=== PATIENT | male | born 2005 | race African-American/Black ===

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

== ENCOUNTER 2024-12-05 08:28 | Inpatient (IN) | payer OTHER, SELFPAY ==
--- OUTSIDE RECORDS SUMMARY | 2024-11-29 14:31 | XMS_ITS | Encounter Summary ---
Author Organization [facility] Address [address] [place] [address] Care Team Providers Care Load Out Worker Name Role Phone Thierry Stern MD Primary Care Provider Encounter Details Date Type Department Care Team (Latest Contact Info) Description 11/29/2024 2:31 PM EDT - 11/29/2024 11:59 PM EDT [facility] [address] [facility] [place] [address] Discharge Disposition: Home or Self Care Social History Tobacco Use Types Packs/Day Years Used Date Smoking Tobacco: Never Smokeless Tobacco: Never Alcohol Use Standard Drinks/Week Comments Not Asked 0 (1 standard drink = 0.6 oz pur e alcohol) Sex and Gender Information Value Date Recorded Sex Assigned at Not on file Legal Sex Male 6:41 AM EST Gender Identity Not on file Sexual Orientation Not on file documented as of this encounter Medications at Time of Discharge naproxen (NAPROSYN) 500 mg tabletIndications :pain Take 1 tablet (500 mg total) by mouth 2 (two) times a day with meals for 10 days. 20 tablet 11/29/2024 12/09/2024 documented as of this encounter Discharge Disposition Disposition Code Departure Means Destination Home or Self Care documented in this encounter Plan of Treatment Not on file documented as of this encounter Procedures Procedure Name Priority Date/Time Associated Diagnosis Comments XR ELBOW 3+ VIEWS RIGHT STAT 11/29/2024 2:36 PM EDT Right elbow pain documented in this encounter Results * XR Elbow 3+ Views Right (11/29/2024 2:36 PM EDT) Anatomical Region Laterality Modality Upper Extremities, Elbow Right Radiogr aphic Imaging 11/29/2024 4:31 PM EDT Narrative 11/29/2024 4:32 PM EDT Right elbow, 3 views. History status post injury. Pain. There is no visible displaced fractures or dislocations. There is no joint effusion. Alignment is maintained. CONCLUSIONS: No visible fractures or dislocations. -------- FINAL REPORT -------- Dictated By: Silvina Oconnor Dictated Date: 11/29/2024 16:31 ET Assigned Physician: Silvina Oconnor Reviewed and Electronically Signed By: Silvina Oconnor Signed Date: 11/29/2024 16:32 ET Workstation ID: [id number] Transcribed By: Self Edit Transcribed Date: 11/29/2024 16:31 ET Procedure Note Silvina Oconnor MD - 11/29/2024 Right elbow, 3 views. History status post injury. Pain. There is no visible displaced fractures or dislocations. There is no jointeffusion. Alignment is maintained. CONCLUSIONS: No visible fractures or dislocations. -------- FINAL REPORT -------- Dictated By: Silvina Oconnor Dictated Date: 11/29/2024 16:31 ET Assigned Physician: Silvina Oconnor Reviewed and Electronically Signed By: Silvina Oconnor Signed Date: 11/29/2024 16:32 ET Workstation ID: [id number] Transcribed By: Self Edit Transcribed Date: 11/29/2024 16:31 ET Dave Vega HOUSING OFFICER IMG XR PROCEDURES Final Resul t documented in this encounter Visit Diagnoses Not on filedocumented in this encounter Care Teams Load Out Worker Relationship Specialty Start Date End Date Thierry Stern MD [address] [place] [address] PCP - General 10/16/23 documented as of this encounter
--- NOTE | ~2024-12-05 | CT_ITS ---
CLINICAL HISTORY: elbow forearm swelling. draining pus CT right elbow and forearm with contrast Comparison: CR - XR ELBOW RT MIN 3V - 12/05/24 09:30 EDT Findings: No fracture or dislocation. No significant osteoarthritis or evidence of osteomyelitis. No elbow joint effusion. Extensive soft tissue swelling and subcutaneous fat stranding which is most conspicuous along the dorsal aspect of the upper arm and the dorsal and ulnar aspects of the forearm. A hypodensity within the subcutaneous tissues overlying the olecranon process of the proximal ulna measures up to 1.6 x 0.7 x 1.9 cm. No other evidence of focal fluid collection/abscess. No evidence of abnormal muscle swelling or soft tissue air. IMPRESSION: Extensive upper arm and forearm subcutaneous edema and fat stranding likely related to cellulitis given the history. A focal subcutaneous hypodensity in the region of the olecranon bursa may represent associated bursitis or abscess. This document has been electronically signed by: Jalen Barrera DO on 12/05/2024 11:44:32
--- NOTE | ~2024-12-05 | XR_ITS ---
CLINICAL HISTORY: pain Three view right elbow Comparison: CT/SR - CT ELBOW RT W IV CON - 12/05/24 10:14 EDT Findings: No fracture or malalignment. No significant osteoarthritis or evidence of osteomyelitis. No elbow joint effusion. Extensive soft tissue swelling. IMPRESSION: Extensive soft tissue swelling likely related to cellulitis. Focal swelling adjacent to the olecranon process may represent bursitis or abscess and is better seen on the same-day CT. This document has been electronically signed by: Jalen Barrera DO on 12/05/2024 11:46:45
--- NOTE | ~2024-12-05 | CT_ITS ---
CLINICAL HISTORY: foremear swollen pus. muscle abscess? CT right elbow and forearm with contrast Comparison: CR - XR ELBOW RT MIN 3V - 12/05/24 09:30 EDT Findings: No fracture or dislocation. No significant osteoarthritis or evidence of osteomyelitis. No elbow joint effusion. Extensive soft tissue swelling and subcutaneous fat stranding which is most conspicuous along the dorsal aspect of the upper arm and the dorsal and ulnar aspects of the forearm. A hypodensity within the subcutaneous tissues overlying the olecranon process of the proximal ulna measures up to 1.6 x 0.7 x 1.9 cm. No other evidence of focal fluid collection/abscess. No evidence of abnormal muscle swelling or soft tissue air. IMPRESSION: Extensive upper arm and forearm subcutaneous edema and fat stranding likely related to cellulitis given the history. A focal subcutaneous hypodensity in the region of the olecranon bursa may represent associated bursitis or abscess. This document has been electronically signed by: Jalen Barrera DO on 12/05/2024 11:47:48
[2024-12-05 08:54] VITALS: BP 151/76; PULSE 88; RESP 18; TEMP 36.7; O2SAT 98; BMI 30.8
--- OUTSIDE RECORDS SUMMARY | 2024-12-05 09:34 | XMS_ITS ---
Author Name [facility] Organization Unknown Care Team Organization Name Specialty Phone Email Start Date End Da te [facility] SEBASTIAN BUSTILLO Primary Care [email or web address] g 11/21/2022 4 [facility] Wilma Benedict Primary Care 01/22/2022 4
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
[2024-12-05 10:13] LABS: Hematocrit 47.4 % (42.0-52.0); Hemoglobin 15.1 g/dl (14.0-18.0); Imm Gran Abs Auto 0.08 X10*3/uL (0.00-0.03); Imm Gran Pct Auto 0.4 % (0.0-0.4); Lymphocytes Absolute Auto 1.8 X10*3/uL (1.2-4.9); MANUAL DIFF FLAG SCAN; Mean Corpuscular HGB Conc 31.9 g/dl (31.0-36.0); Mean Corpuscular Hemoglobin 27.0 pg (27.0-33.0); Mean Corpuscular Volume 84.6 fL (80.0-98.0); NRBC Abs Auto 0.000 X10*3/uL (0.0-0.012); NRBC Pct Auto 0.0 /100WBC (0.0-0.2); Platelet Count 380 X10*3/uL (160-400); Red Blood Count 5.60 X10*6/uL (4.60-5.80); SCAN SMEAR FLAG 1; White Blood Count 18.6 X10*3/uL (4.8-10.8)
[2024-12-05 10:19] LABS: Alanine Aminotransferase 34 U/L (0-40); Albumin Level 4.7 g/dL (3.5-5.0); Alkaline Phosphatase 117 U/L (39-117); Anion Gap 12 (12-20); Aspartate Amino Transferase 20 U/L (5-37); Blood Urea Nitrogen 11 mg/dL (9-16); Calcium 9.1 mg/dL (8.4-10.2); Carbon Dioxide 26 mmol/L (22-29); Chloride 109 mmol/L (96-108); Creatinine Clr Calc Pharmacy 147.4; Estimated Glomerular Filt Rate > 60; Potassium 4.1 mmol/L (3.3-5.1); Sodium 143 mmol/L (135-145); Total Protein 7.5 g/dL (6.5-8.0)
[2024-12-05] MEDS: iohexoL 350 MG/ML 100 ML INFUS..BTL IV (10:21)
[2024-12-05] MEDS: vancomycin/NS 2,000 MG/500 ML PLAST..BAG 250 MG IV (10:48)
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
--- NOTE | 2024-12-05 14:03 | PHA.PROG ---
Admission Date/Time: December 05, 2024 13:46 Indication: Weight in k kg Adjusted body weight in Kg: [place] body weight in Kg: Obesity Dosing Indication % IBW:30.9 Serum Creatinine - Last 168 Hours 12/05/24 09:50 Creatinine 1.05 Estimated CrCl and GFR - Last 168 Hours 12/05/24 09:50 Estim Creat Clear Calc 147.4 Estimated GFR > 60 Vancomycin Loading Dose: 2000 MG Current Vancomycin Dosing Regimen: 1500 MG Q12 Vancomycin Monitoring using AUC goal of 400 - 600 range with trough as surrogate marker: 551/17.2 Date and Time for next Vancomycin Level to be drawn: 12/06 @1999 Pharmacist Comments on Vancomycin Plan: Vancomycin dosing will take advantage of [employer] as a clinical decision support tool that uses Bayesian modeling to calculate individual patient's pharmacokinetic parameters and forecast the patient's drug concentration time course with the target goal AUC 24 range of 400 - 600 mg/L/hr.
--- NOTE | 2024-12-05 15:22 | PHA.MEDREC ---
Addendum entered by Nate Solares RPh 12/05/24 16:34: MED REC REVIEWED BY [facility] (Radha spoke to patient). Original Note: Pharmacy Consult ? Medication Reconciliation Pharmacy has completed the medication reconciliation.
[2024-12-05] MEDS: 0.9 % Sodium Chloride Flush 3 ML SYRINGE IVFLUSH ×2 (16:05→23:40)
--- NOTE | 2024-12-05 16:20 | PC.NURSE ---
Pt moved to hospital bed, updated on POC, pt in agreement to stay once he understood why he was getting admitted.
[2024-12-05 16:36] VITALS: BP 127/55; PULSE 64; RESP 16; TEMP 36.8; O2SAT 97
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
--- NOTE | 2024-12-05 17:03 | PC.NURSE ---
offered pt analgesia for pain, pt refuses at thsi time. Pt transferred to hospital bed. Pt educated on use of PRN pain medication- pt awaiting bed assignment, call mendoza within reach plan of care ongoing
[2024-12-05 18:25] VITALS: RESP 16
[2024-12-05 18:44] VITALS: BP 124/64; PULSE 70; RESP 16; TEMP 36.7; O2SAT 98
[2024-12-05 21:49] VITALS: BMI 31.0
[2024-12-05 21:55] VITALS: BP 136/63; PULSE 70; RESP 18; TEMP 36.9; O2SAT 98
[2024-12-06] MEDS: oxyCODONE HCl Immed Release 5 MG TABLET PO ×3 (04:55→20:07)
[2024-12-06 05:16] VITALS: BP 111/55; PULSE 60; RESP 18; TEMP 36; O2SAT 95
[2024-12-06 06:15] LABS: Hematocrit 42.5 % (42.0-52.0); Hemoglobin 13.7 g/dl (14.0-18.0); Imm Gran Abs Auto 0.07 X10*3/uL (0.00-0.03); Imm Gran Pct Auto 0.4 % (0.0-0.4); Lymphocytes Absolute Auto 2.0 X10*3/uL (1.2-4.9); MANUAL DIFF FLAG SCAN; Mean Corpuscular HGB Conc 32.2 g/dl (31.0-36.0); Mean Corpuscular Hemoglobin 27.1 pg (27.0-33.0); Mean Corpuscular Volume 84.2 fL (80.0-98.0); NRBC Abs Auto 0.000 X10*3/uL (0.0-0.012); NRBC Pct Auto 0.0 /100WBC (0.0-0.2); Platelet Count 316 X10*3/uL (160-400); Red Blood Count 5.05 X10*6/uL (4.60-5.80); SCAN SMEAR FLAG 1; White Blood Count 16.1 X10*3/uL (4.8-10.8)
[2024-12-06 06:28] LABS: Anion Gap 11 (12-20); Blood Urea Nitrogen 7 mg/dL (9-16); Calcium 8.8 mg/dL (8.4-10.2); Carbon Dioxide 26 mmol/L (22-29); Chloride 108 mmol/L (96-108); Creatinine Clr Calc Pharmacy 153.6; Estimated Glomerular Filt Rate > 60; Potassium 4.0 mmol/L (3.3-5.1); Sodium 141 mmol/L (135-145)
[2024-12-06] MEDS: 0.9 % Sodium Chloride Flush 3 ML SYRINGE IVFLUSH ×2 (08:00→21:37)
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
--- NOTE | 2024-12-06 11:56 | HO.PM.IMPN ---
Subjective Subjective Date of Service: 12/06/24 Review of Systems Follow up Right arm cellulitis Still with some edema but better today better movement Physical Exam Exam: Exam: Appearing in no acute distress lung sounds are clear to auscultation heart regular rate rhythm, clear S1, S2 positive bowel sounds, abdomen is soft, nontender neuro patient is alert x3, no focal deficits Right arm edema with mahsa wrap Vital Signs: Vital Signs: Last Vital Signs Temp 96.8 F 12/06/24 05:16 Pulse 60 12/06/24 05:16 Resp 18 12/06/24 05:16 BP 111/55 L 12/06/24 05:16 Pulse Ox 95 12/06/24 05:16 O2 Del Method Room Air 12/06/24 05:16 BMI result Body Mass Index 31.0 Objective Data Active Medications Acetaminophen (Acetaminophen 325 Mg Tablet) 650 mg PO Q6H PRN PRN Reason: Pain, Mild 1-3,fever,headache Last Admin: 12/06/24 04:55 Dose: 650 mg Documented By: COLBY Calcium Carbonate (Calcium Carbonate 750 Mg Tab.Chew) 750 mg PO Q4H PRN PRN Reason: Heartburn Piperacillin Sod/Tazobactam (Sod 3.375 gm/ Sodium Chloride) 50 mls @ 100 mls/hr IV Q6H [facility] Last Infusion: 12/06/24 11:31 Dose: Infused Documented By: THERESA Vancomycin HCl 1,500 mg/ (Sodium Chloride) 500 mls @ 333.333 mls/hr IV Q12H [facility] Last Admin: 12/06/24 11:28 Dose: 333.33 mls/hr Documented By: THERESA Levetiracetam (Levetiracetam 500 Mg Tablet) 500 mg PO BID [facility] Last Admin: 12/06/24 07:59 Dose: 500 mg Documented By: THERESA Magnesium Hydroxide (Milk Of Magnesia 30 Ml Oral.Susp) 30 ml PO DAILY PRN PRN Reason: Constipation Melatonin (Melatonin 3 Mg Tablet) 6 mg PO BEDTIME PRN PRN Reason: Insomnia Morphine Sulfate (Morphine Sulfate 4 Mg/Ml Cartridge) 2 mg IVPUSH Q3H PRN; Protocol PRN Reason: Pain, Severe (Pain Scale 7-10) Last Admin: 12/05/24 23:07 Dose: 2 mg Documented By: COLBY Ondansetron HCl (Ondansetron Hcl 4 Mg/2 Ml Vial) 4 mg IVPUSH Q8H PRN PRN Reason: Nausea and Vomiting Oxycodone HCl (Oxycodone Hcl Immed Release 5 Mg Tablet) 5 mg PO Q6H PRN PRN Reason: Pain, Moderate(Pain Scale 4-6) Last Admin: 12/06/24 04:55 Dose: 5 mg Documented By: COLBY Pharmacy Consult (Consult Rx Vancomycin Dosing) 1 each MISCELLANE DAILY PRN PRN Reason: Consult order Sodium Chloride (0.9 % Sodium Chloride Flush 3 Ml Syringe) 3 ml IVFLUSH QSHIFT [facility] Last Admin: 12/06/24 08:00 Dose: 3 ml Documented By: THERESA Labs 12/06/24 05:37 12/06/24 05:37 Labs: Laboratory Results - last 24 hr 12/05/24 12/06/24 09:50 05:37 MCV 84.2 MCH 27.1 MCHC 32.2 RDW 14.4 Plt Count 316 MPV 9.9 Immature Gran % (Auto) 0.4 Neut % (Auto) 76.4 H Lymph % (Auto) 12.5 L [place] % (Auto) 9.4 Eos % (Auto) 1.1 Baso % (Auto) 0.2 Lymph # (Auto) 2.0 [place] # (Auto) 1.5 H Eos # (Auto) 0.2 Baso # (Auto) 0.0 Abs Immat Gran (auto) 0.07 H Absolute Neuts (auto) 12.3 H Absolute Nucleated RBC 0.000 Nucleated RBC % (auto) 0.0 Smear Tech's Comments VERIFIED Anion Gap 11 L Estim Creat Clear Calc 153.6 Estimated GFR > 60 Random Glucose 104 Calcium 8.8 Total Creatine Kinase 179 H Microbiology Microbiology Results: Microbiology 12/05/24 09:50 Gram Stain - Final Arm Right Routine Culture - Preliminary Staphylococcus aureus Assessment and Plan (1) Right arm cellulitis: Status: Acute Plan 19-year-old male with a history of epilepsy who presents to the emergency department with right arm swelling found to have arm cellulitis with abscess and possible infected olecranon bursitis Right arm cellulitis/abscess and olectranon bursitis no evidence of compartment syndrome at this time. no sepsis continue IV vanco and zosyn Follow wound culture, blood cultures Orthopedic surgery consulted> no need for intervention at this time, warm soaks pain management Epilepsy Continue baseline dose of Keppra DVT prophylaxis-mechanical devices, early ambulation. Avoid chemoprophylaxis in the event patient requires surgical intervention 2 midnight stay in the hospital for management of right arm cellulitis and possible infected olecranon bursitis requiring IV antibiotics and specialist evaluation with possible surgical intervention Quality Stroke Does the patient have a stroke diagnosis?: No VTE Prior VTE?: No VTE Risk Level:: Medical - moderate - high VTE Device Contraindication: N/A - Device Ordered VTE Drug Contraindication: Treatment Not Indicated
[2024-12-06 14:00] VITALS: BP 141/79; PULSE 86; RESP 16; TEMP 36.5; O2SAT 99
--- NOTE | 2024-12-06 16:01 | MHC.CM.PN ---
PATIENT LIVES AT HOME W/ MOTHER & 19 YEAR OLD NEPHEW. FUNCTIONALLY INDEPENDENT. DENIES USE OF DME OR SERVICES. WORKS IN A WAREHOUSE. NO PCP. DISCUSSED THE IMPORTANCE OF ESTABLISHING CARE AND PROVIDED VMG PROVIDER BROCHURE. HE WILL CALL FOR AN APPT. NO HCP. CM PROVIDED EDUCATION AND OFFERED ASSISTANCE. PATIENT DECLINED. DP: HOME SELF CARE. CURRENTLY NO DRESSING TO WOUND, IF DRESSINGS ARE ORDERED HIS MOTHER CAN ASSIST. FRIEND TO TRANSPORT. CM WILL CONTINUE TO FOLLOW.
--- NOTE | 2024-12-06 20:47 | HE.PHANOTE ---
RE:vanco Level came back at 5.7mg/L, increased to 1500mg Q8H with predicted trough of 10mg/L, AUC of 463 mg/L. Next level to be drawn 12/07
[2024-12-06 22:00] VITALS: BP 138/63; PULSE 98; RESP 18; TEMP 37; O2SAT 97
[2024-12-07 03:27] VITALS: BP 130/59; PULSE 74; RESP 18; TEMP 37.1; O2SAT 97
--- NOTE | 2024-12-07 07:49 | PM.PNORT ---
Subjective Subjective Date of Service: 12/07/24 Interval history: Rt elbow olecranon bursitis -resting in bed, no overnight events -pain is minimal Physical Exam Vital Signs: Vital Signs: Last Vital Signs Temp 98.8 F 12/07/24 03:27 Pulse 74 12/07/24 03:27 Resp 18 12/07/24 03:27 BP 130/59 L 12/07/24 03:27 Pulse Ox 97 12/07/24 03:27 O2 Del Method Room Air 12/07/24 03:27 BMI result Body Mass Index 31.0 Extrem: Other: Right elbow without swelling or redness No drainage No lacerations, abrasions, open areas No evidence of infection No tendrness on exam Patient is able to flex and extend the right elbow actively and with some discomfort Distal sensation intact Capillary refill brisk Procedures Date of Service Date of Service: 12/07/24 Progress Note: A&P Assessment and plan (1) Olecranon bursa abscess: Status: Acute Assessment and Plan: Cont iv abx once cultures back determine PO abx ROM of elbow f/u outpatien with PCP Time Spent With Patient Time: Total time managing care of this patient today ____ minutes. Quality Stroke Does the patient have a stroke diagnosis?: No VTE Prior VTE?: No VTE Risk Level:: Medical - moderate - high VTE Device Contraindication: N/A - Device Ordered VTE Drug Contraindication: Treatment Not Indicated
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
== END 2024-12-07 11:03 | disposition home or self-care (01) | DRG 351 ==
LOC: HO.ED 13:26 → HO.EDOVER 13:49 → HO.S3 20:09
PROVIDERS: Physician Assistant; Admitting Provider Physician Assistant Medical; Emergency Provider Emergency Medicine; Visit Provider Nurse Practitioner Acute Care
DX: M71.021 Abscess of bursa, right elbow (principal); G40.909 Epilepsy, unspecified, not intractable, without status epilepticus; B95.61 Methicillin susceptible Staphylococcus aureus infection as the cause of diseases classified elsewhere; L03.113 Cellulitis of right upper limb; Z79.899 Other long term (current) drug therapy
CPT/HCPCS: 36415; 73080; 73201; 80048; 80053; 80202; 82550; 82565; 83605; 85025; 85652; 86140; 87040; 87070; 87077; 87186; 87205; 97110; 97165; 99221; 99285; J1885; J2270; J2543; J3373; J3374; Q9967

== ENCOUNTER → 2024-12-05 09:24 | Outpatient (BNV) | payer OTHER, SELFPAY | PROVIDERS: Emergency Provider Emergency Medicine; PCP Family Medicine; Visit Provider Radiology Diagnostic Radiology | DX: R60.0 Localized edema (principal); M79.89 Other specified soft tissue disorders | CPT/HCPCS: 73080; 73201 ==

== ENCOUNTER → 2024-12-05 13:46 | Outpatient (BNV) | payer OTHER, SELFPAY | PROVIDERS: Admitting Provider Physician Assistant Medical; Emergency Provider Emergency Medicine; PCP Family Medicine; Visit Provider Physician Assistant Medical | DX: M71.029 Abscess of bursa, unspecified elbow (principal) | CPT/HCPCS: 99223; 99232; 99239 ==

== ENCOUNTER → 2024-12-05 13:46 | Outpatient (BNV) | payer OTHER, SELFPAY | PROVIDERS: Admitting Provider Physician Assistant Medical; Emergency Provider Emergency Medicine; PCP Family Medicine | DX: M71.029 Abscess of bursa, unspecified elbow (principal); L03.113 Cellulitis of right upper limb | CPT/HCPCS: 99222 ==

== ENCOUNTER 2025-03-02 10:00 | Emergency (ER) | payer OTHER, SELFPAY ==
[2025-03-02 10:26] VITALS: BP 115/51; BP 160/80; PULSE 74; PULSE 80; RESP 16; TEMP 36.6; O2SAT 97; O2SAT 99; BMI 29.5
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
[2025-03-02] MEDS: Diphth,Pertus(ACell),Tet Adult 0.5 ML SYRINGE IM (12:40)
--- OUTSIDE RECORDS SUMMARY | 2025-03-02 13:25 | XMS_ITS | Encounter Summary ---
Author Organization [facility] Prior to 01/16/2024 [facility] [address] [facility] [place] Care Team Providers Care Saw Repairer Name Role Phone Ayla Joshi MD Primary Care Provider Bruno Vick MD Primary Care Provider Wilma Tapia MD Primary Care Provider [phone] Sun Herrera MD Primary Care Provider + Thierry Stern MD Primary Care Provider [phone] Encounter Details Date Type Department Care Team Description 06/07/2011 Release of Information Medical Records [address] [place] [id number] Abstract, Provider Social History Tobacco Use Types Packs/Day Years Used Date Smoking Tobacco: Every Day Comments:nmom smokes outside Alcohol Use Standard Drinks/Week Comments Not Asked 0 (1 standard drink = 0.6 oz pur e alcohol) Sex Assigned at Date Recorded Not on file Job Start Date Occupation Industry Not on file Not on file Not on file documented as of this encounter Plan of Treatment Not on file documented as of this encounter Visit Diagnoses Not on filedocumented in this encounter Care Teams Saw Repairer Relationship Specialty Start Date End Date Ayla Joshi MD PCP - General 02/05/08 06/06/14 Bruno Ruiz MD PCP - General Pediatrics 06/07/14 05/13/21 Wilma Benedict MD [address] [place] [address] [id number] PCP - General Pediatrics 05/14/21 06/17/22 Sun Herrera MD [address] [place] [address] [phone] PCP - General Internal Medicine 06/18/22 10/15/23 Thierry Stern MD [address] [place] [id number] PCP - General Internal Medicine 10/16/23 documented as of this encounter
--- OUTSIDE RECORDS SUMMARY | 2025-03-02 13:25 | XMS_ITS | Encounter Summary ---
Author Organization [facility] Prior to 01/16/2024 Address [address] [facility] [place] [address] Care Team Providers Care Swimmer Name Role Phone Sun Herrera MD Primary Care Provider + Thierry Stern MD Primary Care Provider [phone] Encounter Details Date Type Department Care Team Description 06/10/2023 Film Color Tester Report Medical Records [address] [place] [id number] Tristen Martínez NP Social History Tobacco Use Types Packs/Day Years Used Date Smoking Tobacco: Never Passive Smoke Exposure: Yes Smokeless Tobacco: Never Comments:mom smokes outside Alcohol Use Standard Drinks/Week Comments [...] on filedocumented in this encounter Care Teams Swimmer Relationship Specialty Start Date End Date Sun Herrera MD [address] [place] [id number] PCP - General Internal Medicine 06/18/22 10/15/23 Thierry Stern MD [address] [place] [id number] PCP - General Internal Medicine 10/16/23 documented as of this encounter
--- OUTSIDE RECORDS SUMMARY | 2025-03-02 13:25 | XMS_ITS | Encounter Summary ---
Author Organization [facility] Prior to 01/16/2024 Address [address] [facility] [place] Care Team Providers Care Public Address System Operator Name Role Phone Ayla Joshi MD Primary Care Provider Bruno Vick MD Primary Care Provider Wilma Tapia MD Primary Care Provider [phone] Sun Herrera MD Primary Care Provider + Thierry Stern MD Primary Care Provider [phone] Encounter Details Date Type Department Care Team Description 03/08/2010 Can Tender Report Medical Records [address] [place] [id number] Geoffrey Botello MD Social History Tobacco Use Types Packs/Day Years [...] on filedocumented in this encounter Care Teams Public Address System Operator Relationship Specialty Start Date End Date Ayla Joshi MD PCP - General 02/05/08 06/06/14 Bruno Ruiz MD PCP - General Pediatrics 06/07/14 05/13/21 Wilma Benedict MD [address] [place], [place] [id number] PCP - General Pediatrics 05/14/21 06/17/22 Sun Herrera MD [address] [place] [id number] PCP - General Internal Medicine 06/18/22 10/15/23 Thierry Stern MD [address] [place] [address] PCP - General Internal Medicine 10/16/23 documented as of this encounter
--- OUTSIDE RECORDS SUMMARY | 2025-03-02 13:25 | XMS_ITS | Encounter Summary ---
Author Organization [facility] Prior to 01/16/2024 Address [address] [place] [address] Care Team Providers Care Grey Goods Tester Name Role Phone Bruno Ruiz MD Primary Care Provider Wilma Tapia MD Primary Care Provider [phone] Sun Herrera MD Primary Care Provider + Thierry Stern MD Primary Care Provider Encounter Details Date Type Department Care Team Description 11/06/2020 Platform Consultant Report Medical Records [address] [place] [id number] Gray Chapa Social History Tobacco Use Types Packs/Day Years Used Date Smoking Tobacco: Passive Smo ke Exposure - Never Smoker Smokeless Tobacco: Never Comments:mom smokes outside Alcohol [...] on filedocumented in this encounter Care Teams Grey Goods Tester Relationship Specialty Start Date End Date Bruno Ruiz MD PCP - General Pediatrics 06/07/14 05/13/21 Wilma Benedict MD [address] [place] [address] PCP - General Pediatrics 05/14/21 06/17/22 Sun Herrera MD [address] [place] [id number] PCP - General Internal Medicine 06/18/22 10/15/23 Thierry Stern MD [address] [place] [address] PCP - General Internal Medicine 10/16/23 documented as of this encounter
--- OUTSIDE RECORDS SUMMARY | 2025-03-02 13:25 | XMS_ITS | Encounter Summary ---
Author Organization [facility] Prior to 01/16/2024 Address [address] [place] [address] Care Team Providers Care City Engineer Name Role Phone Wilma Benedict MD Primary Care Provider [phone] Sun Herrera MD Primary Care Provider + Thierry Stern MD Primary Care Provider Reason for Visit * Reason Onset Date Comments Sore Throat 02/12/2022 Encounter Details Date Type Department Care Team Description 02/12/2022 Telephone Pediatrics - [address] [address] Yamilet Lofton, PHILLIPCPNP Sore Throat Social History Tobacco Use Types Packs/Day Years Used Date Smoking Tobacco: Passive Smo ke Exposure - Never Smoker Smokeless Tobacco: Never Comments:mom smokes outside Alcohol Use Standard Drinks/Week Comments Not Asked 0 (1 standard drink = 0.6 oz pur e alcohol) Sex Assigned at Date Recorded Not on file Job Start Date Occupation Industry Not on file Not on file Not on file COVID-19 Exposure Response Date Recorded In the last 10 days, have yo u been in contact with someone who was confirmed or suspected to have Coronavirus/COVID-19? No / Unsure 02/14/2022 10:54 AM EST documented as of this encounter Miscellaneous Notes * Telephone Encounter - Saida Abbott L.P.N. - 02/12/2022 9:33 AM EST [facility] - Telephone Triage Documentation CHIEF COMPLAINT:pt has a st for 2 days Pt wanted to be seen Apt booked for Home care sx rx call as needed PCP: Wilma Benedict LMP/EDC: No current outpatient medications on file. No current facility-administered medications for this visit. Allergies: Patient has no known allergies. Patient Active Problem List Diagnosis Code ??? Childhood obesity E66.9 ??? Hypercholesteremia E78.00 ??? Eczema L30.9 ??? Fracture R foot T14.8XXA ??? Motor tic disorder F95.8 DISPOSITION:Appointment given REFERENCE:Pediatric's Telephone Protocols by Ramana/Rick CALLER UNDERSTANDS & AGREES WITH ADVICE:YES * Telephone Encounter - Jess Hannon - 02/12/2022 9:11 AM EST Signs/Symptoms: Sore throat ,missed yesterdays appointment Ask patients who call with respiratory symptoms and/or a fever if they have traveled outside of [place] recently. If yes, do not book. Send to triage Duration of symptoms: Few Days Temperature: Na Allergies: Patient has no known allergies. Any chronic illnesses: Patient Active Problem List Diagnosis Code ??? Childhood obesity E66.9 ??? Hypercholesteremia E78.00 ??? Eczema L30.9 ??? Fracture R foot T14.8XXA ??? Motor tic disorder F95.8 Is the child taking any medications: No current outpatient medications on file. No current facility-administered medications for this visit. documented in this encounter Plan of Treatment Not on file documented as of this encounter Visit Diagnoses Not on filedocumented in this encounter Care Teams City Engineer Relationship Specialty Start Date End Date Wilma Benedict MD [address] [place] [id number] PCP - General Pediatrics 05/14/21 06/17/22 Sun Herrera MD [address] [place] [phone] PCP - General Internal Medicine 06/18/22 10/15/23 Thierry Stern MD [address] [place], [place] [address], [place] [address] PCP - General Internal Medicine 10/16/23 documented as of this encounter
--- OUTSIDE RECORDS SUMMARY | 2025-03-02 13:25 | XMS_ITS | Encounter Summary ---
Author Organization [facility] Prior to 01/16/2024 Address [address] [place] [address] Care Team Providers Care Wedding Designer Name Role Phone Wilma Benedict MD Primary Care Provider [phone] Sun Herrera MD Primary Care Provider + Thierry Stern MD Primary Care Provider [phone] Encounter Details Date Type Department Care Team Description 05/14/2021 Dry Cell Battery Assembler Report Medical Records [address] [place] [id number] Sinan Bro PA-C Social History Tobacco Use Types Packs/Day Years [...] Exposure Response Date Recorded In the last month, have you been in contact with someone who was confirmed or suspected to have Coronavirus / COVID-19? No / Unsure 05/14/2021 2:49 PM EST documented as of this encounter Plan of Treatment Not on file documented as of this encounter Visit Diagnoses Not on filedocumented in this encounter Care Teams Wedding Designer Relationship Specialty Start Date End Date Wilma Benedict MD [address] [place] [phone] PCP - General Pediatrics 05/14/21 06/17/22 Sun Herrera MD [address] [place] [address] [phone] PCP - General Internal Medicine 06/18/22 10/15/23 Thierry Stern MD [address] [place] [phone] PCP - General Internal Medicine 10/16/23 documented as of this encounter
--- OUTSIDE RECORDS SUMMARY | 2025-03-02 13:26 | XMS_ITS | Encounter Summary ---
Author Organization [facility] Prior to 01/16/2024 Address [address] [place] [address] Care Team Providers Care Capital Equipment Specialist Name Role Phone Bruno Ruiz MD Primary Care Provider Wilma Tapia MD Primary Care Provider [phone] Sun Herrera MD Primary Care Provider + Thierry Stern MD Primary Care Provider [phone] Encounter Details Date Type Department Care Team Description 09/27/2015 Hospital Medical Records [address] [place] [id number] Akilah Lees Social History Tobacco Use Types Packs/Day Years [...] on filedocumented in this encounter Care Teams Capital Equipment Specialist Relationship Specialty Start Date End Date Bruno Ruiz MD PCP - General Pediatrics 06/07/14 05/13/21 Wilma Benedict MD [address] [place] [id number] PCP - General Pediatrics 05/14/21 06/17/22 Sun Herrera MD [address] [place] [phone] PCP - General Internal Medicine 06/18/22 10/15/23 Thierry Stern MD [address] [place] [address] PCP - General Internal Medicine 10/16/23 documented as of this encounter
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
--- OUTSIDE RECORDS SUMMARY | 2025-03-02 13:26 | XMS_ITS | Encounter Summary ---
Author Organization [facility] Prior to 01/16/2024 Address [address] [facility] [place] [address] Care Team Providers Care Dark Room Attendant Name Role Phone Bruno Ruiz MD Primary Care Provider Wilma Tapia MD Primary Care Provider [phone] Sun Herrera MD Primary Care Provider + Thierry Stern MD Primary Care Provider [phone] Encounter Details Date Type Department Care Team Description 04/15/2016 Maintenance Shop Clerk Report Medical Records [address] [place] [address] Lizbet Guillen APRN Social History Tobacco Use Types Packs/Day Years Used Date Smoking Tobacco: Passive Smo ke Exposure - Never Smoker Comments:mom smokes outside Alcohol Use Standard Drinks/Week [...] on filedocumented in this encounter Care Teams Dark Room Attendant Relationship Specialty Start Date End Date Bruno Ruiz MD PCP - General Pediatrics 06/07/14 05/13/21 Wilma Benedict MD [address] [place] [address] [phone] PCP - General Pediatrics 05/14/21 06/17/22 Sun Herrera MD [address] [place] [address] [phone] PCP - General Internal Medicine 06/18/22 10/15/23 Thierry Stern MD [address] [place] [address] PCP - General Internal Medicine 10/16/23 documented as of this encounter
--- OUTSIDE RECORDS SUMMARY | 2025-03-02 13:26 | XMS_ITS | Encounter Summary ---
Author Organization [facility] Prior to 01/16/2024 Address [address] [facility] [place] [address] Care Team Providers Care Greenhouse Staff Name Role Phone Bruno Ruiz MD Primary Care Provider Wilma Tapia MD Primary Care Provider [phone] Sun Herrera MD Primary Care Provider + Thierry Stern MD Primary Care Provider [phone] Encounter Details Date Type Department Care Team Description 05/21/2016 Learning Officer Report Medical Records [address] [place] [address] Rogelio Brothers Social History Tobacco Use Types Packs/Day Years [...] on filedocumented in this encounter Care Teams Greenhouse Staff Relationship Specialty Start Date End Date Bruno Ruiz MD PCP - General Pediatrics 06/07/14 05/13/21 Wilma Benedict MD [address] [place] [address] [phone] PCP - General Pediatrics 05/14/21 06/17/22 Sun Herrera MD [address] [place] [address] [phone] PCP - General Internal Medicine 06/18/22 10/15/23 Thierry Stern MD [address] [place] [address] PCP - General Internal Medicine 10/16/23 documented as of this encounter
--- OUTSIDE RECORDS SUMMARY | 2025-03-02 13:26 | XMS_ITS | Encounter Summary ---
Author Organization [facility] Prior to 01/16/2024 Address [address] [facility] [place] [address] Care Team Providers Care Mine Inspector Name Role Phone Sun Herrera MD Primary Care Provider + Thierry Stern MD Primary Care Provider [phone] Encounter Details Date Type Department Care Team Description 12/23/2022 Lead Worker Of Housekeeping And Laundry Report Medical Records [address] [place] [address] Lucila Hunt Social History Tobacco Use Types Packs/Day Years [...] on filedocumented in this encounter Care Teams Mine Inspector Relationship Specialty Start Date End Date Sun Herrera MD [address] [place] [phone] PCP - General Internal Medicine 06/18/22 10/15/23 Thierry Stern MD [address] [place] [phone] PCP - General Internal Medicine 10/16/23 documented as of this encounter
--- OUTSIDE RECORDS SUMMARY | 2025-03-02 13:26 | XMS_ITS | Encounter Summary ---
Author Organization [facility] Prior to 01/16/2024 Address [address] [facility] [place] [address] Care Team Providers Care Crown Wheel Assembler Name Role Phone Bruno Ruiz MD Primary Care Provider Wilma Tapia MD Primary Care Provider Sun Herrera MD Primary Care Provider + Thierry Stern MD Primary Care Provider [phone] Encounter Details Date Type Department Care Team Description 06/18/2016 Auto Damage Estimator Report Medical Records [address] [place] [address] Marta Escamilla Social History Tobacco Use Types Packs/Day Years [...] on filedocumented in this encounter Care Teams Crown Wheel Assembler Relationship Specialty Start Date End Date Bruno Ruiz MD PCP - General Pediatrics 06/07/14 05/13/21 Wilma Benedict MD [address] [place] [phone] PCP - General Pediatrics 05/14/21 06/17/22 Sun Herrera MD [address] [place] [address] PCP - General Internal Medicine 06/18/22 10/15/23 Thierry Stern MD [address] [place] [address] PCP - General Internal Medicine 10/16/23 documented as of this encounter
--- OUTSIDE RECORDS SUMMARY | 2025-03-02 13:26 | XMS_ITS | Encounter Summary ---
Author Organization [facility] Prior to 01/16/2024 [facility] [address] [facility] Care Team Providers Care Conference Services Coordinator Name Role Phone Ayla Joshi MD Primary Care Provider Bruno Vick MD Primary Care Provider Wilma Tapia MD Primary Care Provider [phone] Sun Herrera MD Primary Care Provider + Thierry Stern MD Primary Care Provider [phone] Encounter Details Date Type Department Care Team Description 11/06/2012 Transfer Records Medical Records [address] [place] [address] Abstract, Provider Social History Tobacco Use Types [...] on filedocumented in this encounter Care Teams Conference Services Coordinator Relationship Specialty Start Date End Date Ayla Joshi MD PCP - General 02/05/08 06/06/14 Bruno Ruiz MD PCP - General Pediatrics 06/07/14 05/13/21 Wilma Benedict MD [address] [place] [address] [phone] PCP - General Pediatrics 05/14/21 06/17/22 Sun Herrera MD [address] [place] [address] [phone] PCP - General Internal Medicine 06/18/22 10/15/23 Thierry Stern MD [address] [place] [phone] PCP - General Internal Medicine 10/16/23 documented as of this encounter
--- OUTSIDE RECORDS SUMMARY | 2025-03-02 13:26 | XMS_ITS | Encounter Summary ---
Author Organization [facility] Prior to 01/16/2024 Address [address] [facility] [place] [facility] [place] [address] Care Team Providers Care Air Conditioning Manager Name Role Phone Bruno Ruiz MD Primary Care Provider Wilma Tapia MD Primary Care Provider [phone] Sun Herrera MD Primary Care Provider + Thierry Stern MD Primary Care Provider [phone] Encounter Details Date Type Department Care Team Description 05/30/2016 Release of Information Medical Records [address] [place] [address] Abstract, Provider Social History Tobacco Use Types [...] on filedocumented in this encounter Care Teams Air Conditioning Manager Relationship Specialty Start Date End Date Bruno Ruiz MD PCP - General Pediatrics 06/07/14 05/13/21 Wilma Benedict MD [address] [place] [address] [phone] PCP - General Pediatrics 05/14/21 06/17/22 Sun Herrera MD [address] [place] [phone] PCP - General Internal Medicine 06/18/22 10/15/23 Thierry Stern MD [address] [place] [address] PCP - General Internal Medicine 10/16/23 documented as of this encounter
--- OUTSIDE RECORDS SUMMARY | 2025-03-02 13:26 | XMS_ITS | Encounter Summary ---
Author Organization [facility] Prior to 01/16/2024 Address [address] [facility] [place] [address] Care Team Providers Care Microbiology Technologist Name Role Phone Bruno Ruiz MD Primary Care Provider Wilma Tapia MD Primary Care Provider [phone] Sun Herrera MD Primary Care Provider + Thierry Stern MD Primary Care Provider [phone] Encounter Details Date Type Department Care Team Description 09/24/2015 Aluminum Welder Report Medical Records [address] [place] [address] Juventino Lamar Social History Tobacco Use Types Packs/Day Years [...] on filedocumented in this encounter Care Teams Microbiology Technologist Relationship Specialty Start Date End Date Bruno Ruiz MD PCP - General Pediatrics 06/07/14 05/13/21 Wilma Benedict MD [address] [place] [phone] PCP - General Pediatrics 05/14/21 06/17/22 Sun Herrera MD [address] [place] [address] [phone] PCP - General Internal Medicine 06/18/22 10/15/23 Thierry Stern MD [address] [place] [address] PCP - General Internal Medicine 10/16/23 documented as of this encounter
--- OUTSIDE RECORDS SUMMARY | 2025-03-02 13:26 | XMS_ITS | Encounter Summary ---
Author Organization [facility] Prior to 01/16/2024 Address [address] [facility] Care Team Providers Care Field Crop Ii Farmworker Name Role Phone Ayla Joshi MD Primary Care Provider Unavailab Natalia Tyler Primary Care Provider Unavail able Bruno Ruiz MD Primary Care Provider Ramonitava Wilma Mcneil MD Primary Care Provider [phone] Sun Herrera MD Primary Care Provider + Thierry Stern MD Primary Care Provider [phone] Encounter Details Date Type Department Care Team Description 02/11/2006 Hospital Medical Records [address] [place] [address] Geoffrey Botello MD Social History Tobacco Use [...] on filedocumented in this encounter Care Teams Field Crop Ii Farmworker Relationship Specialty Start Date End Date Ayla Joshi MD PCP - General 02/05/08 06/06/14 Natalia Lowe [address] [facility] [address] [place] [address] PCP - General 04 02/04/08 Bruno Ruiz MD [address] [facility] [address] [place] [address] PCP - General Pediatrics 06/07/14 05/13/21 Wilma Benedict MD [address] [place] [phone] PCP - General Pediatrics 05/14/21 06/17/22 Sun Herrera MD [address] [place] [id number] PCP - General Internal Medicine 06/18/22 10/15/23 Thierry Stern MD [address] [place] [address] PCP - General Internal Medicine 10/16/23 documented as of this encounter
--- OUTSIDE RECORDS SUMMARY | 2025-03-02 13:26 | XMS_ITS | Encounter Summary ---
Author Organization [facility] Prior to 01/16/2024 Address [address] [facility] [place] [address] Care Team Providers Care Senior Field Engineer Name Role Phone Sun Herrera MD Primary Care Provider + Thierry Stern MD Primary Care Provider [phone] Encounter Details Date Type Department Care Team Description 01/01/2023 Orders Only Medical Records [address] [place] [address] Lucila Hunt Social History Tobacco Use Types [...] Procedure Name Priority Date/Time Associated Diagnosis Comments OUTSIDE EEG Routine 10/24/2022 documented in this encounter Results * OUTSIDE EEG (10/24/2022) Lucila Hunt PERFORMABLES documented in this encounter Visit Diagnoses Not on filedocumented in this encounter Care Teams Senior Field Engineer Relationship Specialty Start Date End Date Sun Herrera MD [address] [place] [address]31 PCP - General Internal Medicine 06/18/22 10/15/23 Thierry Stern MD [address] [place] [phone] PCP - General Internal Medicine 10/16/23 documented as of this encounter
--- OUTSIDE RECORDS SUMMARY | 2025-03-02 13:26 | XMS_ITS | Encounter Summary ---
Author Organization [facility] Prior to 01/16/2024 Address [address] [facility] [place] [address] Care Team Providers Care Membership Sales Manager Name Role Phone Ayla Joshi MD Primary Care Provider Bruno Vick MD Primary Care Provider Wilma Tapia MD Primary Care Provider Sun Herrera MD Primary Care Provider + Thierry Stern MD Primary Care Provider [phone] Encounter Details Date Type Department Care Team Description 07/12/2013 Supervisor Research Kennel Report Medical Records [address] [place] [address] Shania Patricia Social History Tobacco Use Types Packs/Day Years Used Date Smoking Tobacco: Passive Smo ke Exposure - Never Smoker Comments:nmom smokes outside Alcohol Use Standard Drinks/Week [...] on filedocumented in this encounter Care Teams Membership Sales Manager Relationship Specialty Start Date End Date Ayla Joshi MD PCP - General 02/05/08 06/06/14 Bruno Ruiz MD PCP - General Pediatrics 06/07/14 05/13/21 Wilma Benedict MD [address] [place] [address] [phone] PCP - General Pediatrics 05/14/21 06/17/22 Sun Herrera MD [address] [place] [phone] PCP - General Internal Medicine 06/18/22 10/15/23 Thierry Stern MD [address] [place] [address] PCP - General Internal Medicine 10/16/23 documented as of this encounter
[2025-03-02] MEDS: Lidocaine HCl 1 % MPF 5 ML VIAL INFILTRATI (14:44)
[2025-03-02 14:56] VITALS: BP 115/51; PULSE 74; RESP 16; TEMP 36.6; O2SAT 97
== END 2025-03-02 14:57 | disposition home or self-care (01) ==
PROVIDERS: Emergency Provider Emergency Medicine Emergency Medical Services; PCP Pediatrics
DX: S51.811A Laceration without foreign body of right forearm, initial encounter (principal); V87.8XXA Person injured in other specified noncollision transport accidents involving motor vehicle (traffic), initial encounter; Y93.39 Activity, other involving climbing, rappelling and jumping off; Y92.9 Unspecified place or not applicable; Z23 Encounter for immunization
CPT/HCPCS: 12002; 90471; 90715; 99282; 99284; J2003